=== PATIENT | male | born 1985 | race African-American/Black ===

== ENCOUNTER 2017-07-12 10:23 | Emergency (ER) | payer SELFPAY ==
[2017-07-12] MEDS ORDERED: SULFAMETHOXAZOLE/TRIMETHOPRIM 800-160 MG TABLET PO ONE (10:43)
[2017-07-12] MEDS ORDERED: IBUPROFEN 800 MG TABLET PO ONE (10:43)
[2017-07-12] MEDS ORDERED: CEPHALEXIN 500 MG CAPSULE PO ONE (10:43)
[2017-07-12] MEDS ORDERED: DIPH/PERTUSS(ACELL)/TETANUS VAC/PF 0.5 ML SYR (>=10YO) IM ONE (10:47)
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
[2017-07-12 10:51] VITALS: BP 138/96
== END 2017-07-12 11:28 | disposition home or self-care (01) ==
LOC: ER 10:23
PROC: 0H9EXZZ Drainage of Left Lower Arm Skin, External Approach (ICD-10-PCS; principal; 2017-07-12)
DX: L02.414 Cutaneous abscess of left upper limb (principal)
CPT/HCPCS: 87070; 87075; 87077; 87186; 87205; 90471; 90715; 99283